=== PATIENT | female | born 1985 | race Caucasian/White ===

== ENCOUNTER 2022-09-25 02:34 | Emergency (ER) | payer OTHER ==
[~2022-09-25] VITALS: Ht 165.1 cm; Wt 54.4 kg
[~2022-09-25 02:34] MED LIST: GUAI100L31; OSEL30CA; PRED5TAB48 PO
[2022-09-25 02:51] VITALS: BP 113/73
--- NOTE | 2022-09-25 04:14 | NUR ---
Patient does not wish to proceed with medical care recommended by Dr. Trejo. Patient given information related to possible complications, up to and including , which could occur as a result of leaving the hospital at this time. Patient verbalizes understanding of risks involved due to leaving against medical advice. Patient has signed AMA form.
== END 2022-09-25 04:33 | disposition left against medical advice (07) ==
LOC: ER 02:38
DX: S52.125A Nondisplaced fracture of head of left radius, initial encounter for closed fracture (principal); Z88.0 Allergy status to penicillin; Z60.2 Problems related to living alone; Z79.899 Other long term (current) drug therapy; W00.0XXA Fall on same level due to ice and snow, initial encounter; Y93.89 Activity, other specified; Y92.89 Other specified places as the place of occurrence of the external cause; Y99.8 Other external cause status
CPT/HCPCS: 73080-TC